=== PATIENT | female | born 1990 | race Two or more races ===

== ENCOUNTER 2025-01-01 10:29 | Emergency (ER) | payer OTHER ==
[~2025-01-01] VITALS: Ht 165.1 cm; Wt 61.7 kg
[2025-01-01] MEDS ORDERED: IBUP-1955 PO (11:17)
[2025-01-01 12:10] VITALS: BP 113/66; TEMP 99.4; O2SAT 98
== END 2025-01-01 12:12 | disposition home or self-care (01) ==
LOC: ER 10:29
DX: J20.8 Acute bronchitis due to other specified organisms (principal); B97.89 Other viral agents as the cause of diseases classified elsewhere
CPT/HCPCS: A4606; A4663